=== PATIENT | female | born 1950 | race Caucasian/White ===

== ENCOUNTER 2023-03-25 17:26 | Emergency (ER) | payer MEDICARE, OTHER ==
[2023-03-25] MEDS ORDERED: Azithromycin 250 MG TAB ONE (19:34)
[2023-03-25] MEDS ORDERED: predniSONE 10 MG TAB ONE (19:34)
[2023-03-25] MEDS ORDERED: Amoxicillin/Potassium Clav 875 MG TAB ONE (19:34)
[2023-03-25] MEDS ORDERED: predniSONE 20 MG TAB ONE (19:34)
== END 2023-03-25 19:46 | disposition home or self-care (01) ==
LOC: MADERS 17:26
DX: U07.1 COVID-19 (principal); J12.82 Pneumonia due to coronavirus disease 2019; E03.9 Hypothyroidism, unspecified; E78.5 Hyperlipidemia, unspecified; I10 Essential (primary) hypertension
CPT/HCPCS: 71045; 99283; J7512